=== PATIENT | male | born 1970 | race Native Hawaiian/Other Pacific Islander ===

== ENCOUNTER 2017-01-06 05:35 | Outpatient (CLI) | payer BC | END 2017-01-06 19:09 | disposition home or self-care (01) | LOC: RAD 05:35 | DX: Z01.818 Encounter for other preprocedural examination (principal) ==

== ENCOUNTER 2017-10-03 00:14 | Outpatient (CLI) | payer OTHER ==
[2017-10-03 05:37] LABS: PLATELET COUNT 422 K/uL (142-355)
[2017-10-03 06:02] LABS: POTASSIUM 4.4 mmol/L (3.6-5.2)
== END 2017-10-03 23:08 | disposition home or self-care (01) ==
LOC: LABW 00:14
PROVIDERS: Family Medicine
DX: I10 Essential (primary) hypertension (principal); E55.9 Vitamin D deficiency, unspecified; E03.9 Hypothyroidism, unspecified; E29.1 Testicular hypofunction
CPT/HCPCS: 36415; 80053; 81000; 82306; 84402; 84403; 84439; 84443; 85027

== ENCOUNTER 2017-11-06 09:36 | Outpatient (CLI) | payer OTHER | END 2017-11-06 21:31 | disposition home or self-care (01) | LOC: LABW 09:36 | PROVIDERS: Family Medicine | DX: D64.9 Anemia, unspecified (principal); E78.2 Mixed hyperlipidemia; Z12.5 Encounter for screening for malignant neoplasm of prostate | CPT/HCPCS: 36415; 80061; 82607; 82728; 82746; 83540; 83550; G0103 ==

== ENCOUNTER 2017-12-20 18:19 | Outpatient (CLI) | payer OTHER | END 2017-12-20 19:35 | disposition home or self-care (01) | LOC: LABW 18:19 | DX: B25.1 Cytomegaloviral hepatitis (principal) | CPT/HCPCS: 36415; 80076 ==

== ENCOUNTER 2018-01-03 15:55 | Outpatient (CLI) | payer OTHER | END 2018-01-03 19:51 | disposition home or self-care (01) | LOC: RAD 15:55 | DX: M81.0 Age-related osteoporosis without current pathological fracture (principal); E29.1 Testicular hypofunction ==

== ENCOUNTER 2018-03-25 23:17 | Emergency (ER) | payer OTHER ==
[~2018-03-25] VITALS: Ht 170.2 cm; Wt 88.5 kg
[2018-03-26 00:23] VITALS: BP 144/78; TEMP 98.5
== END 2018-03-26 00:24 | disposition home or self-care (01) ==
LOC: ED 23:17
DX: M54.32 Sciatica, left side (principal); M47.896 Other spondylosis, lumbar region
CPT/HCPCS: 96372; 99283; J2930

== ENCOUNTER 2018-09-24 07:28 | Outpatient (CLI) | payer OTHER | END 2018-09-24 22:14 | disposition home or self-care (01) | LOC: MRI 07:28 | DX: M47.816 Spondylosis without myelopathy or radiculopathy, lumbar region (principal) ==

== ENCOUNTER 2018-11-13 01:02 | Outpatient (CLI) | payer OTHER ==
[2018-11-13 06:10] LABS: PLATELET COUNT 381 K/uL (142-355)
[2018-11-13 06:28] LABS: POTASSIUM 4.1 mmol/L (3.6-5.2); SODIUM 143 mmol/L (136-145)
== END 2018-11-13 19:36 | disposition home or self-care (01) ==
LOC: LABW 01:02
PROVIDERS: Family Medicine
DX: E11.69 Type 2 diabetes mellitus with other specified complication (principal); E55.9 Vitamin D deficiency, unspecified; E29.1 Testicular hypofunction; E03.9 Hypothyroidism, unspecified
CPT/HCPCS: 36415; 80053; 80061; 82043; 82306; 82570; 82607; 84153; 84402; 84403; 84443; 85027

== ENCOUNTER 2019-01-07 19:47 | Outpatient (CLI) | payer OTHER | END 2019-01-07 22:06 | disposition home or self-care (01) | LOC: LABW 19:47 | DX: D50.9 Iron deficiency anemia, unspecified (principal) | CPT/HCPCS: 36415; 82728; 83540; 84466 ==

== ENCOUNTER → 2019-02-02 | Outpatient (CLI) | payer OTHER | LOC: RAD 18:14 | DX: R76.11 Nonspecific reaction to tuberculin skin test without active tuberculosis (principal) ==

== ENCOUNTER 2019-02-04 09:39 | Day surgery (SDC) | payer OTHER ==
[2019-02-04 10:58] LABS: PLATELET COUNT 334 K/uL (142-355)
[2019-02-04 11:00] LABS: POTASSIUM 4.6 mmol/L (3.6-5.2)
== END 2019-02-04 13:00 | disposition home or self-care (01) ==
LOC: OR 09:39
PROVIDERS: Internal Medicine Gastroenterology
PROC: 0DJD8ZZ Inspection of Lower Intestinal Tract, Via Natural or Artificial Opening Endoscopic (ICD-10-PCS; principal; 2019-02-04)
DX: K63.89 Other specified diseases of intestine (principal); K64.8 Other hemorrhoids; Z12.11 Encounter for screening for malignant neoplasm of colon
CPT/HCPCS: 80053; 85027

== ENCOUNTER 2019-05-16 01:52 | Outpatient (CLI) | payer OTHER ==
[2019-05-16 06:22] LABS: PLATELET COUNT 249 K/uL (142-355)
[2019-05-16 06:53] LABS: POTASSIUM 4.3 mmol/L (3.6-5.2); SODIUM 140 mmol/L (136-145)
== END 2019-05-16 22:58 | disposition home or self-care (01) ==
LOC: LABW 01:52
PROVIDERS: Family Medicine
DX: Z79.899 Other long term (current) drug therapy (principal); I10 Essential (primary) hypertension; E78.2 Mixed hyperlipidemia; E03.9 Hypothyroidism, unspecified; E55.9 Vitamin D deficiency, unspecified; E11.9 Type 2 diabetes mellitus without complications
CPT/HCPCS: 36415; 80053; 80061; 81000; 82306; 83036; 84402; 84403; 84439; 84443; 85027

== ENCOUNTER 2019-08-06 10:38 | Outpatient (CLI) | payer OTHER | END 2019-08-06 19:08 | disposition home or self-care (01) | LOC: MRI 10:38 | DX: M48.061 Spinal stenosis, lumbar region without neurogenic claudication (principal) ==

== ENCOUNTER 2019-08-31 19:40 | Outpatient (CLI) | payer OTHER | END 2019-08-31 21:51 | disposition home or self-care (01) | LOC: LABW 19:40 | DX: D64.9 Anemia, unspecified (principal) | CPT/HCPCS: 82607; 82728; 82746; 83540; 83550; 85044 ==

== ENCOUNTER 2019-09-08 08:44 | Outpatient (CLI) | payer OTHER ==
[2019-09-08 09:29] LABS: POTASSIUM 4.9 mmol/L (3.6-5.2)
[2019-09-08 09:48] LABS: PLATELET COUNT 314 K/uL (142-355)
== END 2019-09-08 20:35 | disposition home or self-care (01) ==
LOC: LABW 08:44
DX: E11.69 Type 2 diabetes mellitus with other specified complication (principal); E78.5 Hyperlipidemia, unspecified; E55.9 Vitamin D deficiency, unspecified; E03.9 Hypothyroidism, unspecified
CPT/HCPCS: 36415; 80053; 80061; 82043; 82306; 82570; 82607; 84153; 84402; 84403; 84443; 85027

== ENCOUNTER 2019-12-12 00:44 | Outpatient (CLI) | payer OTHER ==
[2019-12-12 08:09] LABS: PLATELET COUNT 277 K/uL (142-355)
== END 2019-12-12 23:42 | disposition home or self-care (01) ==
LOC: LABW 00:44
PROVIDERS: Family Medicine
DX: D50.9 Iron deficiency anemia, unspecified (principal); I10 Essential (primary) hypertension; E78.2 Mixed hyperlipidemia; E88.81 Metabolic syndrome and other insulin resistance; E03.8 Other specified hypothyroidism
CPT/HCPCS: 36415; 80053; 80061; 82728; 83036; 83540; 83550; 84402; 84403; 84439; 84443; 85027

== ENCOUNTER 2020-01-14 00:17 | Outpatient (CLI) | payer OTHER | END 2020-01-14 19:00 | disposition home or self-care (01) | LOC: LABW 00:17 | PROVIDERS: ATTEND Internal Medicine Endocrinology, Diabetes & Metabolism | DX: E11.69 Type 2 diabetes mellitus with other specified complication (principal); E78.5 Hyperlipidemia, unspecified; E55.9 Vitamin D deficiency, unspecified; E03.9 Hypothyroidism, unspecified | CPT/HCPCS: 82043; 82306; 82570; 82607; 84402; 84403 ==

== ENCOUNTER 2020-05-07 03:33 | Outpatient (CLI) | payer OTHER ==
[2020-05-07 06:29] LABS: PLATELET COUNT 283 K/uL (142-355)
[2020-05-07 07:21] LABS: POTASSIUM 4.4 mmol/L (3.6-5.2)
== END 2020-05-07 18:58 | disposition home or self-care (01) ==
LOC: LABW 03:33
PROVIDERS: ATTEND Physician Assistant
DX: E11.69 Type 2 diabetes mellitus with other specified complication (principal); E78.5 Hyperlipidemia, unspecified; E55.9 Vitamin D deficiency, unspecified; E03.9 Hypothyroidism, unspecified
CPT/HCPCS: 36415; 80053; 80061; 82043; 82306; 82570; 82607; 84153; 84402; 84403; 84443; 85027

== ENCOUNTER 2020-06-24 05:36 | Outpatient (CLI) | payer OTHER | END 2020-06-24 21:43 | disposition home or self-care (01) | LOC: CT 05:36 | DX: J32.0 Chronic maxillary sinusitis (principal) ==

== ENCOUNTER → 2020-09-11 | Outpatient (CLI) | payer OTHER ==
[2020-09-11 21:10] LABS: PLATELET COUNT 330 K/uL (142-355)
[2020-09-11 21:36] LABS: POTASSIUM 4.7 mmol/L (3.6-5.2)
== END ==
LOC: LABW 19:39
PROVIDERS: ATTEND Family Medicine
DX: D50.9 Iron deficiency anemia, unspecified (principal); I10 Essential (primary) hypertension; E78.2 Mixed hyperlipidemia; D64.9 Anemia, unspecified; E29.1 Testicular hypofunction; Z79.899 Other long term (current) drug therapy; E11.9 Type 2 diabetes mellitus without complications
CPT/HCPCS: 80053; 80061; 81000; 82306; 82607; 82728; 83036; 83540; 83550; 84402; 84403; 84439; 84443; 85027

== ENCOUNTER 2020-11-03 08:03 | Outpatient (CLI) | payer OTHER ==
[2020-11-03 08:38] LABS: PLATELET COUNT 344 K/uL (142-355)
[2020-11-03 09:10] LABS: POTASSIUM 4.6 mmol/L (3.6-5.2)
== END 2020-11-03 19:07 | disposition home or self-care (01) ==
LOC: LABW 08:03
PROVIDERS: ATTEND Physician Assistant
DX: E11.69 Type 2 diabetes mellitus with other specified complication (principal); E78.5 Hyperlipidemia, unspecified; E55.9 Vitamin D deficiency, unspecified; E03.9 Hypothyroidism, unspecified
CPT/HCPCS: 36415; 80053; 80061; 82043; 82306; 82570; 82607; 84153; 84402; 84403; 84443; 85027

== ENCOUNTER 2021-04-13 17:37 | Outpatient (CLI) | payer OTHER ==
[2021-04-13 18:23] LABS: PLATELET COUNT 291 K/uL (142-355)
[2021-04-13 18:26] LABS: POTASSIUM 4.3 mmol/L (3.6-5.2)
== END 2021-04-13 19:16 | disposition home or self-care (01) ==
LOC: LABW 17:37
PROVIDERS: ATTEND Family Medicine
DX: E11.9 Type 2 diabetes mellitus without complications (principal); D64.9 Anemia, unspecified; I10 Essential (primary) hypertension; Z79.899 Other long term (current) drug therapy; E03.9 Hypothyroidism, unspecified; E29.1 Testicular hypofunction
CPT/HCPCS: 36415; 80053; 80061; 81000; 82306; 82607; 82746; 83036; 84402; 84403; 84439; 84443; 85008; 85027

== ENCOUNTER 2021-05-10 18:10 | Outpatient (CLI) | payer OTHER ==
[2021-05-10 19:09] LABS: POTASSIUM 4.6 mmol/L (3.6-5.2)
[2021-05-10 19:14] LABS: PLATELET COUNT 376 K/uL (142-355)
== END 2021-05-10 19:05 | disposition home or self-care (01) ==
LOC: LABW 18:10
PROVIDERS: ATTEND Physician Assistant
DX: E29.1 Testicular hypofunction (principal); R94.5 Abnormal results of liver function studies; E11.69 Type 2 diabetes mellitus with other specified complication; E55.9 Vitamin D deficiency, unspecified; E03.9 Hypothyroidism, unspecified
CPT/HCPCS: 36415; 80053; 80061; 82043; 82306; 82570; 82607; 84153; 84402; 84403; 84443; 85008; 85027

== ENCOUNTER → 2021-06-20 | Outpatient (CLI) | payer OTHER | LOC: LABW 21:57 | PROVIDERS: ATTEND Family Medicine | DX: D64.9 Anemia, unspecified (principal) | CPT/HCPCS: 82728; 83540 ==

== ENCOUNTER 2021-07-14 19:15 | Outpatient (CLI) | payer OTHER | END 2021-07-14 23:00 | disposition home or self-care (01) | LOC: RAD 19:15 | PROVIDERS: ATTEND Physical Medicine & Rehabilitation Pain Medicine | DX: M47.816 Spondylosis without myelopathy or radiculopathy, lumbar region (principal) ==

== ENCOUNTER 2021-08-14 10:37 | Outpatient (CLI) | payer OTHER | END 2021-08-14 18:47 | disposition home or self-care (01) | LOC: MRI 10:37 | PROVIDERS: ATTEND Physical Medicine & Rehabilitation Pain Medicine | DX: M47.816 Spondylosis without myelopathy or radiculopathy, lumbar region (principal) ==

== ENCOUNTER 2021-12-29 06:44 | Outpatient (CLI) | payer OTHER ==
[2021-12-29 07:03] LABS: PLATELET COUNT 271 K/uL (142-355)
[2021-12-29 07:46] LABS: POTASSIUM 4.5 mmol/L (3.6-5.2)
== END 2021-12-29 18:59 | disposition home or self-care (01) ==
LOC: LABW 06:44
PROVIDERS: ATTEND Family Medicine
DX: D64.89 Other specified anemias (principal); I10 Essential (primary) hypertension; Z79.899 Other long term (current) drug therapy; E29.1 Testicular hypofunction; E03.8 Other specified hypothyroidism; E11.9 Type 2 diabetes mellitus without complications
CPT/HCPCS: 36415; 80053; 80061; 81002; 82306; 82607; 82728; 82746; 83036; 83540; 83550; 84402; 84403; 84439; 84443; 85027

== ENCOUNTER 2022-06-14 07:55 | Outpatient (CLI) | payer OTHER ==
[2022-06-14 08:12] LABS: PLATELET COUNT 382 K/uL (142-355)
[2022-06-14 08:33] LABS: POTASSIUM 4.5 mmol/L (3.6-5.2)
== END 2022-06-14 17:00 | disposition home or self-care (01) ==
LOC: LABW 07:55
PROVIDERS: ATTEND Internal Medicine Endocrinology, Diabetes & Metabolism
DX: E11.69 Type 2 diabetes mellitus with other specified complication (principal); R94.5 Abnormal results of liver function studies; E29.1 Testicular hypofunction; E03.8 Other specified hypothyroidism; E55.9 Vitamin D deficiency, unspecified
CPT/HCPCS: 36415; 80053; 80061; 82043; 82570; 82607; 82652; 84153; 84402; 84403; 84443; 85027

== ENCOUNTER 2022-08-21 19:31 | Outpatient (CLI) | payer OTHER ==
[2022-08-21 22:39] LABS: PLATELET COUNT 330 K/uL (142-355)
== END 2022-08-21 22:00 | disposition home or self-care (01) ==
LOC: LABW 19:31
PROVIDERS: ATTEND Family Medicine
DX: D64.9 Anemia, unspecified (principal)
CPT/HCPCS: 82525; 82607; 82728; 82746; 83540; 83550; 85027; 85044

== ENCOUNTER 2023-04-14 03:28 | Outpatient (CLI) | payer OTHER ==
[2023-04-14 06:13] LABS: PLATELET COUNT 343 K/uL (142-355)
[2023-04-14 06:43] LABS: POTASSIUM 4.5 mmol/L (3.6-5.2)
== END 2023-04-14 19:10 | disposition home or self-care (01) ==
LOC: LABW 03:28
PROVIDERS: ATTEND Family Medicine
DX: Z01.818 Encounter for other preprocedural examination (principal); E11.9 Type 2 diabetes mellitus without complications; D64.89 Other specified anemias; I10 Essential (primary) hypertension; Z79.899 Other long term (current) drug therapy; Z12.5 Encounter for screening for malignant neoplasm of prostate; E29.1 Testicular hypofunction; E03.8 Other specified hypothyroidism
CPT/HCPCS: 36415; 80053; 80061; 81002; 82306; 82607; 82728; 82746; 83036; 83540; 83550; 84153; 84402; 84403; 84439; 84443; 85027